=== PATIENT | male | born 1985 | race Two or more races ===

== ENCOUNTER 2024-07-27 21:57 | Emergency (ER) | payer OTHER ==
[~2024-07-27] VITALS: Ht 177.8 cm; Wt 87.4 kg
[2024-07-27 21:58] VITALS: BP 123/83; TEMP 98; O2SAT 98
[2024-07-27] MEDS ORDERED: PRED20TA PO (23:32)
[2024-07-27] MEDS: methylPREDNISolone 125MG 2ML VIAL IM ONE (23:41)
== END 2024-07-27 23:57 | disposition home or self-care (01) ==
LOC: M ED 21:57
DX: L50.9 Urticaria, unspecified (principal); Z79.52 Long term (current) use of systemic steroids
CPT/HCPCS: 96372; 99283; J2919